=== PATIENT | female | born 2000 | race Two or more races ===

== ENCOUNTER 2024-09-07 09:24 | Emergency (ER) | payer OTHER ==
[~2024-09-07] VITALS: Ht 170.2 cm; Wt 59.0 kg
[2024-09-07] MEDS ORDERED: DEPAKOTE ER500 MG PO (09:36)
[2024-09-07] MEDS ORDERED: ZOLOFT50 MG PO (09:37)
[2024-09-07] MEDS ORDERED: PEPCID AC10 MG (09:37)
[2024-09-07] MEDS ORDERED: PAMELOR75 M1 PO (09:37)
[2024-09-07] MEDS ORDERED: RESTORIL30 MG PO (09:37)
[2024-09-07 09:38] VITALS: BP 107/65; O2SAT 100
[2024-09-07] MEDS ORDERED: FAMOtidine 10 MG/ML (4ML VIAL) IV STA (11:07)
[2024-09-07] MEDS ORDERED: METOCLOPRAMIDE HCL 5 MG/ML VIAL IV STA (11:08)
[2024-09-07] MEDS ORDERED: ONDANSETRON HCL 2 MG/ML VIAL IV STA (11:09)
[2024-09-07 12:23] LABS: HEMATOCRIT 38.1 % (36.0-45.00); HEMOGLOBIN 13.3 g/dL (12.0-15.00); MEAN CELL VOLUME 91.2 fL (80.00-100.00); MEAN CORPUSCULAR HEMOGLOBIN 31.9 pg (27.00-32.0); PLATELET COUNT 242 K/uL (150-450); RED BLOOD COUNT 4.17 M/uL (4.00-6.00); RED CELL DISTRIBUTION WIDTH 13.5 % (11.5-14.5)
[2024-09-07 12:36] LABS: URINE APPEARANCE Clear; URINE BILIRRUBIN Negative (NEGATIVE); URINE BLOOD Negative; URINE COLOR Yellow; URINE GLUCOSE Negative (NEGATIVE); URINE KETONE Negative (NEGATIVE); URINE LEUKOCYTE Negative; URINE NITRATE Negative; URINE PROTEIN Negative (NEGATIVE); URINE UROBILINOGEN 0.2 E.U./dl
[2024-09-07 12:38] LABS: URINE BACTERIA 181.3 uL (0.0-1933); URINE EPITHELIAL CELLS 12.3 uL (0.0-38.8); URINE RBC 4.4 uL (0.0-20.8); URINE WBC 5.2 uL (0.0-23.2)
[2024-09-07 14:23] LABS: CALCIUM 9.1 mg/dL (8.5-10.1); CREATININE SERUM 0.62 mg/dL (0.55-1.02); GFR 117.28; POTASSIUM 4.41 mEq/L (3.5-5.1)
== END 2024-09-07 17:30 | disposition home or self-care (01) ==
LOC: ER 09:26
PROVIDERS: General Practice
DX: R53.81 Other malaise (principal); K21.9 Gastro-esophageal reflux disease without esophagitis